=== PATIENT | female | born 1935 | race Two or more races ===

== ENCOUNTER 2025-02-07 14:53 | Emergency (ER) | payer BC ==
[~2025-02-07] VITALS: Ht 162.6 cm; Wt 72.6 kg
[2025-02-07] MEDS ORDERED: LIDOCAINE HCL/MPF 1% 30 ML VIAL IJ ONE (15:25)
[2025-02-07] MEDS ORDERED: LIDOCAINE 1%-EPI 1:100,000 20 ML VIAL ONE (15:26)
[2025-02-07 18:12] VITALS: BP 160/80; TEMP 97.6; O2SAT 98
== END 2025-02-07 18:13 | disposition home or self-care (01) ==
LOC: ER 15:03
DX: S02.2XXA Fracture of nasal bones, initial encounter for closed fracture (principal); S01.81XA Laceration without foreign body of other part of head, initial encounter; M48.02 Spinal stenosis, cervical region; E03.9 Hypothyroidism, unspecified; M06.9 Rheumatoid arthritis, unspecified; Z96.651 Presence of right artificial knee joint; W01.0XXA Fall on same level from slipping, tripping and stumbling without subsequent striking against object, initial encounter; Y93.89 Activity, other specified; Y92.89 Other specified places as the place of occurrence of the external cause; Y99.8 Other external cause status
CPT/HCPCS: 12002; 12013; 70450; 70486; 72125; 73564; 99284; A6403; J3490